=== PATIENT | male | born 2000 | race Two or more races ===

== ENCOUNTER 2025-01-05 15:29 | Emergency (ER) | payer MEDICAID, OTHER ==
[~2025-01-05] VITALS: Ht 177.8 cm; Wt 81.8 kg
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
[2025-01-05] MEDS ORDERED: CYCL-837 PO (16:58)
[2025-01-05] MEDS ORDERED: IBUP-1455 PO (16:59)
[2025-01-05] MEDS: HYDROcodone-ACET 5/325MG TAB PO ONE (17:41)
[2025-01-05 18:00] VITALS: BP 116/63; PULSE 80; RESP 16; TEMP 98.7; O2SAT 98
== END 2025-01-05 18:18 | disposition home or self-care (01) ==
LOC: EDUNIT# 15:29 → EDBD 15:29 → ER 15:35
DX: S16.1XXA Strain of muscle, fascia and tendon at neck level, initial encounter (principal); M25.512 Pain in left shoulder; M25.511 Pain in right shoulder; Z88.0 Allergy status to penicillin; V89.2XXA Person injured in unspecified motor-vehicle accident, traffic, initial encounter; Y93.89 Activity, other specified; Y92.488 Other paved roadways as the place of occurrence of the external cause; Y99.8 Other external cause status
CPT/HCPCS: 73000